=== PATIENT | female | born 1995 ===

== ENCOUNTER 2017-03-11 21:16 | Emergency (ER) | payer OTHER ==
[2017-03-11] MEDS ORDERED: NS 0.9% 1000 ML* 1,000 ML IV ONE (22:04)
[2017-03-11 23:06] LABS: ABS Basophils 0 10^3/ul (0-0.2); ABS Eosinophils 0 10^3/ul (0-0.6); ABS Lymphocytes 0.7 10^3/ul (1.0-4.8); ABS Monocytes 0.3 10^3/ul (0-0.8); ABS Neutrophils 6.8 10^3/ul (1.5-7.7); ABS Nucleated RBC 0 10^3/ul; Eosinophil % 0 % (0-6); Hematocrit 40 % (35-47); Hemoglobin 13.4 g/dl (12.0-16.0); Lymphocyte % 8.7 % (25-47); Mean Corpuscular HGB Conc 34 g/dl (31-36); Mean Corpuscular Hemoglobin 28 pg (27-31); Mean Corpuscular Volume 83 fL (80-97); Mean Platelet Volume 8 um3 (7.4-10.4); Nucleated Red Blood Cells % 0.1; Platelet Count 220 10^3/ul (150-450); Red Blood Count 4.77 10^6/ul (4.0-5.4); Red Cell Distribution Width 13 % (10.5-15); White Blood Count 7.8 10^3/ul (3.5-10.8)
[2017-03-11 23:17] LABS: EGFR Non-African American 103.3 (>60)
[2017-03-12] MEDS ORDERED: Ondansetron INJ* 2 MG/ML VIAL IV ONE (00:24)
[2017-03-12] MEDS ORDERED: Acetaminophen TAB* 325 MG PO ONE (00:34)
[2017-03-12] MEDS ORDERED: Oseltamivir CAP* 75 MG CAP PO ONE (00:34)
[2017-03-12 02:36] VITALS: BP 105/59
[2017-03-12] MEDS ORDERED: Azithromycin TAB* 250 MG PO ONE (02:45)
--- NOTE | 2017-03-12 11:11 | RAD ---
INDICATION: Cough and congestion COMPARISON: None TECHNIQUE: PA and lateral views of the chest were obtained. FINDINGS: The heart and mediastinum are normal in size and contour. On the AP view there is appearance of increased density overlying the right greater than left mid level lungs. There is no corresponding density seen on the lateral view radiograph. The lungs are otherwise clear. There is no pleural effusion. Visualized bones are normal for the patient's age. There is no radiographic evidence of free air beneath the diaphragm IMPRESSION: DENSITY SEEN ON THE AP VIEW OVERLYING THE BILATERAL MID-LEVEL LUNGS IS SUSPECTED TO BE DUE TO DENSE BREAST TISSUE OPPOSED TO ACUTE PULMONARY DISEASE IN THIS OTHERWISE NONACUTE CHEST X-RAY.
--- NOTE | 2017-03-13 00:53 | ED ---
Influenza-Like Illness - HPI Summary HPI Summary: Patient is an otherwise healthy 22-year-old female who presents to the ED with flulike symptoms. She endorses cough, congestion, fever, sweats, chills, upset stomach 4 days. She denies any health concerns and takes no medications. She has been taking ibuprofen and Tylenol intermittently without relief of symptoms. She has been extra fatigued lately has been endorsing sick contacts. She is a college student and states people have been having the flu. Denies any urinary symptoms, back pain, hematemesis, melena, and is otherwise having normal bowel movements. Denies any rashes. Endorses diffuse body aches which have improved since this afternoon. Symptoms are aggravated by nothing and relieved with nothing. She is eating and drinking okay. - History of Current Complaint Chief Complaint: EDFluSymptoms Time Seen by Provider: 03/11/17 22:24 Hx Obtained From: Patient Onset/Duration: Sudden Onset Severity: Moderate Associated Signs & Symptoms: Fever, T Max - 103, F/C, Myalgia, Cough, Sore Throat, Nasal Congestion, Headache Related Hx: Possible Flu/Infectious Exposure - Risk Factors Influenza Risk Factors: Negative - Allergy/Home Medications Allergies/Adverse Reactions: Allergies Allergy/AdvReac Type Severity Reaction Status Date / Time cephalexin [From Keflex] Allergy Rash Verified 03/11/17 21:20 erythromycin base Allergy Nausea Verified 03/11/17 21:20 Sulfa (Sulfonamide Allergy Rash Verified 03/11/17 21:20 Antibiotics) PMH/Surg Hx/FS Hx/Imm Hx Previously Healthy: Yes - Immunization History Hx Pertussis Vaccination: No Immunizations Up to Date: Unable to Obtain/Confirm Infectious Disease History: No Infectious Disease History: Denies: Traveled Outside the [place] in Last 30 Days - Social History Occupation: Unemployed, Student Lives: With Family Alcohol Use: Weekly Hx Substance Use: No Substance Use Type: Reports: None Hx Tobacco Use: No Smoking Status (MU): Never Smoked Tobacco Review of Systems Positive: Fever, Chills, Fatigue, Skin Diaphoresis Eyes: Negative Cardiovascular: Negative Respiratory: Negative Positive: Cough Genitourinary: Negative Positive: no symptoms reported, see HPI Positive: Myalgia Positive: Headache All Other Systems Reviewed And Are Negative: Yes Physical Exam Triage Information Reviewed: Yes Vital Signs On Initial Exam: Initial Vitals Temp Pulse Resp BP Pulse Ox 98.8 F 134 20 87/52 97 03/11/17 21:20 03/11/17 21:20 03/11/17 21:20 03/11/17 21:20 03/11/17 21:20 Vital Signs Reviewed: Yes Appearance: Positive: Well-Nourished, Ill-Appearing Skin: Positive: Warm, Skin Color Reflects Adequate Perfusion, Diaphoretic Head/Face: Positive: Normal Head/Face Inspection Eyes: Positive: EOMI, KYLE, Conjunctiva Clear Neck: Positive: Supple, Nontender, No Lymphadenopathy Respiratory/Lung Sounds: Positive: Rhonchi - Right mid to lower lung base Cardiovascular: Positive: Pulses are Symmetrical in both Upper and Lower Extremities Musculoskeletal: Positive: Strength/ROM Intact Neurological: Positive: Speech Normal Psychiatric: Positive: Normal, Affect/Mood Appropriate AVPU Assessment: Alert Diagnostics - Vital Signs Vital Signs Temp Pulse Resp BP Pulse Ox 03/12/17 02:34 98.9 F 91 18 105/59 98 03/12/17 00:08 99.2 F 03/11/17 21:20 98.8 F 134 20 87/52 97 - Laboratory Lab Results: Lab Results 03/11/17 03/11/17 03/11/17 Range/Units 21:34 22:48 22:48 WBC 7.8 (3.5-10.8) 10^3/ul RBC 4.77 (4.0-5.4) 10^6/ul Hgb 13.4 (12.0-16.0) g/dl Hct 40 (35-47) % MCV 83 (80-97) fL MCH 28 (27-31) pg MCHC 34 (31-36) g/dl RDW 13 (10.5-15) % Plt Count 220 (150-450) 10^3/ul MPV 8 (7.4-10.4) um3 Neut % (Auto) 86.7 H (38-83) % Lymph % (Auto) 8.7 L (25-47) % [place] % (Auto) 4.3 (1-9) % Eos % (Auto) 0 (0-6) % Baso % (Auto) 0.3 (0-2) % Absolute Neuts (auto) 6.8 (1.5-7.7) 10^3/ul Absolute Lymphs (auto) 0.7 L (1.0-4.8) 10^3/ul Absolute Monos (auto) 0.3 (0-0.8) 10^3/ul Absolute Eos (auto) 0 (0-0.6) 10^3/ul Absolute Basos (auto) 0 (0-0.2) 10^3/ul Absolute Nucleated RBC 0 10^3/ul Nucleated RBC % 0.1 Sodium 134 (133-145) mmol/L Potassium 4.0 (3.5-5.0) mmol/L Chloride 99 L (101-111) mmol/L Carbon Dioxide 25 (22-32) mmol/L Anion Gap 10 (2-11) mmol/L BUN 8 (6-24) mg/dL Creatinine 0.72 (0.51-0.95) mg/dL Est GFR ( Amer) 132.8 (>60) Est GFR (Non-Af Amer) 103.3 (>60) BUN/Creatinine Ratio 11.1 (8-20) Glucose 110 H (70-100) mg/dL Lactic Acid (0.5-2.0) mmol/L Calcium 9.7 (8.6-10.3) mg/dL Total Bilirubin 0.60 (0.2-1.0) mg/dL AST 28 (13-39) U/L ALT 23 (7-52) U/L Alkaline Phosphatase 46 (34-104) U/L Total Protein 7.7 (6.4-8.9) g/dL Albumin 4.5 (3.2-5.2) g/dL Globulin 3.2 (2-4) g/dL Albumin/Globulin Ratio 1.4 (1-3) Influenza A (Rapid) Negative (Negative) Influenza B (Rapid) Positive H (Negative) 03/11/17 Range/Units 22:48 WBC (3.5-10.8) 10^3/ul RBC (4.0-5.4) 10^6/ul Hgb (12.0-16.0) g/dl Hct (35-47) % MCV (80-97) fL MCH (27-31) pg MCHC (31-36) g/dl RDW (10.5-15) % Plt Count (150-450) 10^3/ul MPV (7.4-10.4) um3 Neut % (Auto) (38-83) % Lymph % (Auto) (25-47) % [place] % (Auto) (1-9) % Eos % (Auto) (0-6) % Baso % (Auto) (0-2) % Absolute Neuts (auto) (1.5-7.7) 10^3/ul Absolute Lymphs (auto) (1.0-4.8) 10^3/ul Absolute Monos (auto) (0-0.8) 10^3/ul Absolute Eos (auto) (0-0.6) 10^3/ul Absolute Basos (auto) (0-0.2) 10^3/ul Absolute Nucleated RBC 10^3/ul Nucleated RBC % Sodium (133-145) mmol/L Potassium (3.5-5.0) mmol/L Chloride (101-111) mmol/L Carbon Dioxide (22-32) mmol/L Anion Gap (2-11) mmol/L BUN (6-24) mg/dL Creatinine (0.51-0.95) mg/dL Est GFR ( Amer) (>60) Est GFR (Non-Af Amer) (>60) BUN/Creatinine Ratio (8-20) Glucose (70-100) mg/dL Lactic Acid 1.1 (0.5-2.0) mmol/L Calcium (8.6-10.3) mg/dL Total Bilirubin (0.2-1.0) mg/dL AST (13-39) U/L ALT (7-52) U/L Alkaline Phosphatase (34-104) U/L Total Protein (6.4-8.9) g/dL Albumin (3.2-5.2) g/dL Globulin (2-4) g/dL Albumin/Globulin Ratio (1-3) Influenza A (Rapid) (Negative) Influenza B (Rapid) (Negative) Result Diagrams: 03/11/17 22:48 03/11/17 22:48 Lab Statement: Any lab studies that have been ordered have been reviewed, and results considered in the medical decision making process. Flu Symptom Course/Dx - Course Course Of Treatment: Patient is evaluated for influenza-like symptoms. Flu swab obtained and positive for influenza B. On arrival she was tachycardia at 134 so she is given 2 L normal saline fluids with relief and decreased to 87. I have given her Tylenol 650 mg in the ED and also Zofran 4 mg IV with relief of symptoms. She feels much improved and is ready to be discharged. She continues to have a cough and congestion and rhonchorous right lung base. X- ray obtained and interpreted by Dr. Smith and myself as a possible right lower lobe pneumonia versus bronchitis versus other pathology. She is given Tamiflu and azithromycin to cover mycoplasma atypical pneumonia. First dose of azithromycin and Tamiflu given in the ED. She is encouraged plenty of fluids, rest and note given for school. She is okay with discharge and voices no concerns at this time. She will follow-up with [facility] for any differing or worsening symptoms. - Diagnoses Differential Diagnosis/HQI/PQRI: Positive: Bronchitis, Pneumonia, Upper Respiratory Infection Provider Diagnoses: Influenza B, Pneumonia Discharge - Discharge Plan Condition: Stable Disposition: HOME Prescriptions: Azithromycin 250 mg PO DAILY #4 tablet Ondansetron ODT TAB* [Zofran 4 MG Odt TAB*] 4 mg PO Q6H PRN #12 tab.odt MDD 4 PRN Reason: Nausea Oseltamivir CAP* [Tamiflu CAP*] 75 mg PO BID #9 cap Patient Education Materials: Influenza (ED) Referrals: [facility] - Omar FRANCISCO [Primary Care Provider] - Additional Instructions: Please follow up at [facility] for any worsening symptoms Tylenol 650 mg 3 times daily for fevers and body aches Rest as much as possible Make sure you get plenty of fluids If he feel you cannot get enough fluids, drink Gatorade Small meals at a time including chicken noodle soup, applesauce, bananas, rice, toast Remember you are contagious for approximately 7 days after symptoms began Use precautions when around others Wash hands frequently
== END 2017-03-12 02:34 | disposition home or self-care (01) ==
LOC: ED 21:16
DX: J10.00 Influenza due to other identified influenza virus with unspecified type of pneumonia (principal)
CPT/HCPCS: 36415; 71046; 80053; 83605; 85025; 87502; A9270-GY; J2405

== ENCOUNTER 2017-05-25 22:27 | Emergency (ER) | payer OTHER ==
[2017-05-26] MEDS ORDERED: NS 0.9% 1000 ML* 1,000 ML IV ONE (00:51)
[2017-05-26] MEDS ORDERED: Metoclopramide IV* 5 MG/ML 2 ML VIAL IV SLOW PU ONE (00:52)
[2017-05-26] MEDS ORDERED: Ketorolac INJ* 30 MG/ML 1 ML VIAL IV PUSH ONE (00:53)
[2017-05-26] MEDS ORDERED: Ketorolac INJ* 30 MG/ML 1 ML VIAL ONE (00:56)
[2017-05-26] MEDS ORDERED: Metoclopramide IV* 5 MG/ML 2 ML VIAL ONE (00:56)
[2017-05-26 01:18] LABS: ABS Basophils 0 10^3/ul (0-0.2); ABS Eosinophils 0.1 10^3/ul (0-0.6); ABS Lymphocytes 2.2 10^3/ul (1.0-4.8); ABS Monocytes 0.3 10^3/ul (0-0.8); ABS Neutrophils 1.9 10^3/ul (1.5-7.7); ABS Nucleated RBC 0 10^3/ul; Eosinophil % 2.8 % (0-6); Hematocrit 39 % (35-47); Hemoglobin 12.8 g/dl (12.0-16.0); Lymphocyte % 48.4 % (25-47); Mean Corpuscular HGB Conc 33 g/dl (31-36); Mean Corpuscular Hemoglobin 28 pg (27-31); Mean Corpuscular Volume 84 fL (80-97); Mean Platelet Volume 7.7 um3 (7.4-10.4); Nucleated Red Blood Cells % 0.1; Platelet Count 294 10^3/ul (150-450); Red Blood Count 4.62 10^6/ul (4.0-5.4); Red Cell Distribution Width 14 % (10.5-15); White Blood Count 4.6 10^3/ul (3.5-10.8)
[2017-05-26 04:04] VITALS: BP 122/67
--- NOTE | 2017-05-26 05:59 | ED ---
Nabil Coombs Thomas, scribed for Kiara Holman MD on 05/26/17 at 0056 . HPI Chest Pain - HPI Summary HPI Summary: The patient is a 22 year old female who woke up from a nap yesterday at 19:00 with chest pain. The pain has been intermittent since onset. She complains of waves of nausea. She also has numbness and tingling to her right arm and right leg. - History of Current Complaint Chief Complaint: EDChestPainROMI Time Seen by Provider: 05/26/17 00:41 Hx Obtained From: Patient Onset/Duration: Started Hours Ago, Still Present Timing: Intermittent Current Severity: Moderate Pain Intensity: 6 Pain Scale Used: 0-10 Numeric Chest Pain Location: Discrete at: - central Aggravating Factor(s): Nothing Alleviating Factor(s): Nothing Associated Signs and Symptoms: Positive: Chest Pain, Numbness, Nausea. Negative : Fever - Allergy/Home Medications Allergies/Adverse Reactions: Allergies Allergy/AdvReac Type Severity Reaction Status Date / Time cephalexin [From Keflex] Allergy Rash Verified 05/25/17 22:38 erythromycin base Allergy Nausea Verified 05/25/17 22:38 Sulfa (Sulfonamide Allergy Rash Verified 05/25/17 22:38 Antibiotics) PMH/Surg Hx/FS Hx/Imm Hx Cardiovascular History: Reports: Hx Hypercholesterolemia Psychiatric History: Reports: Hx Depression Infectious Disease History: No Infectious Disease History: Denies: Traveled Outside the [place] in Last 30 Days - Family History Known Family History: Negative: Blood Disorder - Social History Alcohol Use: Weekly Hx Substance Use: No Substance Use Type: Reports: None Hx Tobacco Use: No Smoking Status (MU): Never Smoked Tobacco Review of Systems Negative: Fever Positive: Chest Pain Positive: Nausea Neurological: Other - Tingling Positive: Numbness All Other Systems Reviewed And Are Negative: Yes Physical Exam - Summary Physical Exam Summary: VITAL SIGNS: Reviewed. GENERAL: Patient is a well-developed and nourished female who is lying comfortable in the stretcher. Patient is not in any acute respiratory distress. HEAD AND FACE: No signs of trauma. No ecchymosis, hematomas or skull depressions. No sinus tenderness. EYES: PERRLA, EOMI x 2, No injected conjunctiva, no nystagmus. EARS: Hearing grossly intact. Ear canals and tympanic membranes are within normal limits. MOUTH: Oropharynx within normal limits. NECK: Supple, trachea is midline, no adenopathy, no JVD, no carotid bruit, no c- spine tenderness, neck with full ROM. CHEST: Symmetric. She has mid chest/sternal tenderness. LUNGS: Clear to auscultation bilaterally. No wheezing or crackles. CVS: Regular rate and rhythm, S1 and S2 present, no murmurs or gallops appreciated. ABDOMEN: Soft, non-tender. No signs of distention. No rebound no guarding, and no masses palpated. Bowel sounds are normal. EXTREMITIES: FROM in all major joints, no edema, no cyanosis or clubbing. NEURO: Alert and oriented x 3. No acute neurological deficits. Speech is normal and follows commands. SKIN: Dry and warm Triage Information Reviewed: Yes Vital Signs On Initial Exam: Initial Vitals Temp Pulse Resp BP Pulse Ox 97.9 F 80 18 125/70 100 05/25/17 22:35 05/25/17 22:35 05/25/17 22:35 05/25/17 22:35 05/25/17 22:35 Vital Signs Reviewed: Yes Diagnostics - Vital Signs Vital Signs Temp Pulse Resp BP Pulse Ox 05/25/17 22:35 97.9 F 80 18 125/70 100 - Laboratory Result Diagrams: 05/26/17 01:00 05/26/17 01:00 Lab Statement: Any lab studies that have been ordered have been reviewed, and results considered in the medical decision making process. - Radiology CXR Xray Interpretation: No Acute Changes - Negative for acute disease. Pending final report. Radiology Interpretation Completed By: ED Physician - EKG 22:26 Cardiac Rate: NL EKG Rhythm: Sinus Rhythm - at 74 BPM EKG Interpretation: Normal axis, normal intervals, no acute ischemic change. Chest Pain Course/Dx - Course Assessment/Plan: The patient is a 22 year old female who woke up from a nap yesterday at 19:00 with chest pain. The patient was given IV fluids, Toradol, and Reglan. Bloodwork, EKG, and CXR were obtained. The patient is diagnosed with atypical chest pain and she will be discharged to follow up with primary care. - Diagnoses Provider Diagnoses: Atypical chest pain Discharge - Sign-Out/Discharge Documenting (check all that apply): Discharge - Discharge Plan Condition: Stable Disposition: HOME Referrals: [facility] Omar FRANCISCO [Primary Care Provider] - 2 Days Additional Instructions: Follow up primary care 1-2 days. Return for new, worsening symptoms. The documentation as recorded by the Nabil beltran Thomas accurately reflects the service I personally performed and the decisions made by , Kiara Holman MD.
--- NOTE | 2017-05-26 08:03 | RAD ---
Indication: Chest pain. Single frontal view of the chest performed at 0110 hours was reviewed. Comparison is made with previous exam dated March 11, 2017. No mediastinal shift is noted. Heart is of normal size and configuration. Lung holloway appear clear. Lung holloway appear hyperinflated IMPRESSION: NO ACTIVE CARDIOPULMONARY DISEASE IS NOTED.
== END 2017-05-26 03:00 | disposition home or self-care (01) ==
LOC: ED 22:27
DX: R07.89 Other chest pain (principal); R11.0 Nausea; R20.0 Anesthesia of skin
CPT/HCPCS: 36415; 71045; 80053; 82150; 82550; 83690; 83735; 84484; 84702; 85025; 93005; 96374; 96375; 99282; J1885; J2765